=== PATIENT | female | born 1945 | race Caucasian/White ===

== ENCOUNTER 2024-06-02 13:35 | Emergency (ER) | payer MEDICARE, OTHER, SELFPAY ==
[2024-06-02] VITALS (22 sets, daily range): BP systolic 186–209; BP diastolic 79–102; PULSE 70–83; RESP 7–25; TEMP 36.7; O2SAT 89–97; BMI 18.5
--- NOTE | 2024-06-02 13:51 | ED_ITS ---
HPI - Chest Pain General Time Seen by Provider: 13:51 <Sandee Holley MD - Last Filed: 06/03/24 11:02> Date Seen: 06/02/24 <Sandee Holley MD - Last Filed: 06/03/24 11:02> Chief Complaint: Chest Pain <Sandee Holley MD - Last Filed: 06/03/24 11:02> Stated Complaint: chest pressure <Sandee Holley MD - Last Filed: 06/03/24 11:02> Time Seen by Provider: 06/02/24 13:38 <Sandee Holley MD - Last Filed: 06/03/24 11:02> Source: patient and RN notes reviewed <Sandee Holley MD - Last Filed: 06/03/24 11:02> Mode of arrival: ambulatory <Sandee Holley MD - Last Filed: 06/03/24 11:02> Limitations: no limitations <Sandee Holley MD - Last Filed: 06/03/24 11:02> History of Present Illness HPI narrative: This 78-year-old female is brought over from clinic where she was to be seeing Dr. Rivas, she is having elevated blood pressure, chest pain, has hx heart failure and copd. She is able to tell me that her chest pressure is been there maybe for about a week. She has underlying COPD, moved to [place] a few months ago, she states the moving people lost her nebulizer and medical kit. She has been coughing, sometimes whitish sputum, sometimes clear. No fevers. She does continue to smoke but states she has cut down. She feels her lungs maybe are worse, does feel short of breath. She baseline has had some headaches but notes she does not sleep well due to the pain in her legs below her knees due to her peripheral neuropathy. No acute visual changes, no acute neurologic changes at this time. Her chest symptoms are more of a pressure and have been there for the last week. She also has essential tremor, reported preserved ejection fracture heart failure, rheumatoid arthritis, hypertension. She does not check her blood pressure, her blood pressure monitoring kit got lost in her medical kit when she moved here. She notes that she has had a partial lobe removed in her lung. <Sandee Holley MD - Last Filed: 06/03/24 11:02> Related Data Home Medications: Home Medications ?Medication ?Instructions ?Recorded ?Confirmed albuterol sulfate 90 mcg/actuation 2 puff inhalation Q6H PRN 04/14/24 06/02/24 aerosol inhaler aspirin 81 mg chewable tablet 81 mg PO QDAY 04/14/24 06/02/24 azelastine 137 mcg-fluticasone 50 1 spray intranasal BID 04/14/24 06/02/24 mcg/spray nasal spray cholecalciferol (vitamin D3) 25 25 mcg PO QDAY 04/14/24 06/02/24 mcg (1,000 unit) capsule conjugated estrogens 1.25 mg tablet 1.25 mg PO TID 04/14/24 06/02/24 ipratropium 0.5 mg-albuterol 3 mg 3 ml inhalation Q6H PRN 04/14/24 06/02/24 (2.5 mg base)/3 mL nebulization soln leucovorin calcium 5 mg tablet 5 mg PO QWEEK 04/14/24 06/02/24 methotrexate sodium 2.5 mg tablet 2.5 mg PO .QFriday 04/14/24 06/02/24 multivitamin 1 tab PO QAM 04/14/24 06/02/24 pregabalin 75 mg capsule 75 mg PO QDAY 04/14/24 06/02/24 trazodone 100 mg tablet 100 mg PO QHS 04/14/24 06/02/24 golimumab 12.5 mg/mL intravenous 100 mg IV Q8W 04/15/24 06/02/24 solution (Simponi ARIA) Previous Rx's ?Medication ?Instructions ?Recorded diltiazem HCl 360 mg capsule,24 360 mg PO QDAY #90 caps 04/14/24 hr,extended release fluticasone fur. 100 mcg-umeclid 1 inh inhalation QDAY #60 ea 04/14/24 62.5 mcg-vilant 25 mcg inhalat.powder (Trelegy Ellipta) doxycycline hyclate 100 mg tablet 100 mg PO BID #14 tabs 06/02/24 gabapentin 100 mg capsule 100 mg PO TID #90 caps 06/02/24 prednisone 10 mg tablets in a dose See Rx Instructions PO .COMPLEX 06/02/24 pack #21 ea valsartan 80 1 tab PO QDAY #90 tabs 06/02/24 mg-hydrochlorothiazide 12.5 mg tablet (Diovan HCT) <Sandee Holley MD - Last Filed: 06/03/24 11:02> Allergies/Adverse Reactions: Allergies Allergy/AdvReac Type Severity Reaction Status Date / Time Sulfa (Sulfonamide Allergy Intermediate Hives Verified 06/02/24 15:49 Antibiotics) hydroxychloroquine Allergy Unknown Angioedema Verified 06/02/24 15:49 <Sandee Holley MD - Last Filed: 06/03/24 11:02> Review of Systems Status of ROS Reports: 6 or more systems reviewed and unremarkable except as noted in History and below <Sandee Holley MD - Last Filed: 06/03/24 11:02> PFSH PFSH Medical History: Medical History History of lung cancer (2013) ?Z85.118 - Personal history of other malignant neoplasm of bronchus and lung (ICD-10) <Sandee Holley MD - Last Filed: 06/03/24 11:02> Surgical History: Surgical History History of cataract surgery ?Z98.49 - Cataract extraction status, unspecified eye (ICD-10) History of lobectomy of lung (2013) ?Z90.2 - Acquired absence of lung [part of] (ICD-10) History of back surgery (07/2020) ?Z98.890 - Other specified postprocedural states (ICD-10) History of hysterectomy ?Z90.710 - Acquired absence of both cervix and uterus (ICD-10) History of cholecystectomy (06/02/14) ?Z90.49 - Acquired absence of other specified parts of digestive tract (ICD- 10) History of appendectomy ?Z90.49 - Acquired absence of other specified parts of digestive tract (ICD- 10) <Sandee Holley MD - Last Filed: 06/03/24 11:02> Family History: Family History Mother COPD (chronic obstructive pulmonary disease) High blood pressure Breast cancer Rheumatoid arthritis Father Bone cancer Maternal Grandmother Breast cancer <Sandee Holley MD - Last Filed: 06/03/24 11:02> Social History: Social History Smoking Status: Current every day smoker What tobacco products do you use: cigarettes Smoking packs per day: 0.5 Smoking cigarettes per day: 10.0 Do you use any of these nicotine containing products: None How often do you have a drink containing alcohol: monthly or less AUDIT-C Alcohol total score: 1 Non-prescribed substance use: denies use Caffeine: Yes Are you now , , , , never or living with a partner: Social isolation score (0-1 are the most socially isolated patients): 0 <Sandee Holley MD - Last Filed: 06/03/24 11:02> Exam Const Vital Signs, click to edit/add: Vital Signs - 24 hr 06/02/24 13:43 06/02/24 13:58 06/02/24 14:00 Temperature 98.1 F Pulse Rate 78 75 Pulse Rate [Right Pulse Oximeter] 76 Respiratory Rate 18 Blood Pressure 209/102 H Blood Pressure [Left Upper Arm] 186/79 H Pulse Oximetry 90 91 95 Oxygen Delivery Method Room Air 06/02/24 14:01 06/02/24 14:15 06/02/24 14:16 Temperature Pulse Rate 74 Pulse Rate [Right Pulse Oximeter] Respiratory Rate 13 Blood Pressure Blood Pressure [Left Upper Arm] Pulse Oximetry 93 94 Oxygen Delivery Method 06/02/24 14:30 06/02/24 14:33 06/02/24 14:34 Temperature Pulse Rate 70 75 70 Pulse Rate [Right Pulse Oximeter] Respiratory Rate 12 7 L 15 Blood Pressure 205/89 H Blood Pressure [Left Upper Arm] Pulse Oximetry 95 93 95 Oxygen Delivery Method 06/02/24 14:45 06/02/24 15:02 06/02/24 15:15 Temperature Pulse Rate 72 71 Pulse Rate [Right Pulse Oximeter] Respiratory Rate 14 11 L 23 Blood Pressure Blood Pressure [Left Upper Arm] Pulse Oximetry 89 97 Oxygen Delivery Method 06/02/24 15:48 06/02/24 16:00 06/02/24 16:02 Temperature Pulse Rate 76 75 Pulse Rate [Right Pulse Oximeter] Respiratory Rate 25 H 19 23 Blood Pressure 209/90 H Blood Pressure [Left Upper Arm] Pulse Oximetry 93 91 Oxygen Delivery Method 06/02/24 16:15 06/02/24 16:30 06/02/24 16:33 Temperature Pulse Rate 70 74 77 Pulse Rate [Right Pulse Oximeter] Respiratory Rate 25 H 21 19 Blood Pressure 191/97 H Blood Pressure [Left Upper Arm] Pulse Oximetry 93 91 92 Oxygen Delivery Method 06/02/24 16:34 06/02/24 16:45 06/02/24 17:00 Temperature Pulse Rate 83 79 77 Pulse Rate [Right Pulse Oximeter] Respiratory Rate 17 25 H 15 Blood Pressure Blood Pressure [Left Upper Arm] Pulse Oximetry 91 93 94 Oxygen Delivery Method 06/02/24 17:02 Temperature Pulse Rate 76 Pulse Rate [Right Pulse Oximeter] Respiratory Rate 21 Blood Pressure 187/81 H Blood Pressure [Left Upper Arm] Pulse Oximetry 91 Oxygen Delivery Method This 78-year-old female seen in exam room to. She is slender very well kept, very pleasant, no apparent distress, able to speak in complete sentences. Pupils equal round reactive, sclera clear, symmetrical facial function, able to speak in complete sentences, no hoarseness, no stridor. Neck is supple, no adenopathy, do not appreciate jugular venous distension. Lungs with distant breath sounds, prolonged expiratory phase, occasional rhonchi, overall lung sounds more distant. CV regular rate and rhythm systolic ejection murmur heard, normal S1-S2, no S3-S4. Abdomen is soft, nontender, nondistended, no organomegaly. She has some lower compression stockings on, symmetric mild edema appreciated underneath the stockings. Moving extremities, no focal neurologic deficits noted. <Sandee Holley MD - Last Filed: 06/03/24 11:02> Vital Signs - 24 hr 06/02/24 13:43 06/02/24 13:58 06/02/24 14:00 Temperature 98.1 F Pulse Rate 78 75 Pulse Rate [Right Pulse Oximeter] 76 Respiratory Rate 18 Blood Pressure 209/102 H Blood Pressure [Left Upper Arm] 186/79 H Pulse Oximetry 90 91 95 Oxygen Delivery Method Room Air 06/02/24 14:01 06/02/24 14:15 06/02/24 14:16 Temperature Pulse Rate 74 Pulse Rate [Right Pulse Oximeter] Respiratory Rate 13 Blood Pressure Blood Pressure [Left Upper Arm] Pulse Oximetry 93 94 Oxygen Delivery Method 06/02/24 14:30 06/02/24 14:33 06/02/24 14:34 Temperature Pulse Rate 70 75 70 Pulse Rate [Right Pulse Oximeter] Respiratory Rate 12 7 L 15 Blood Pressure 205/89 H Blood Pressure [Left Upper Arm] Pulse Oximetry 95 93 95 Oxygen Delivery Method 06/02/24 14:45 06/02/24 15:02 06/02/24 15:15 Temperature Pulse Rate 72 71 Pulse Rate [Right Pulse Oximeter] Respiratory Rate 14 11 L 23 Blood Pressure Blood Pressure [Left Upper Arm] Pulse Oximetry 89 97 Oxygen Delivery Method 06/02/24 15:48 06/02/24 16:00 06/02/24 16:02 Temperature Pulse Rate 76 75 Pulse Rate [Right Pulse Oximeter] Respiratory Rate 25 H 19 23 Blood Pressure 209/90 H Blood Pressure [Left Upper Arm] Pulse Oximetry 93 91 Oxygen Delivery Method 06/02/24 16:15 06/02/24 16:30 06/02/24 16:33 Temperature Pulse Rate 70 74 77 Pulse Rate [Right Pulse Oximeter] Respiratory Rate 25 H 21 19 Blood Pressure 191/97 H Blood Pressure [Left Upper Arm] Pulse Oximetry 93 91 92 Oxygen Delivery Method 06/02/24 16:34 06/02/24 16:45 06/02/24 17:00 Temperature Pulse Rate 83 79 77 Pulse Rate [Right Pulse Oximeter] Respiratory Rate 17 25 H 15 Blood Pressure Blood Pressure [Left Upper Arm] Pulse Oximetry 91 93 94 Oxygen Delivery Method 06/02/24 17:02 Temperature Pulse Rate 76 Pulse Rate [Right Pulse Oximeter] Respiratory Rate 21 Blood Pressure 187/81 H Blood Pressure [Left Upper Arm] Pulse Oximetry 91 Oxygen Delivery Method <Favian Villegas MD - Last Filed: 06/02/24 16:54> Documenting provider has reviewed patient's vital signs: yes <Sandee Holley MD - Last Filed: 06/03/24 11:02> Course Course ED Course: Will have patient on cardiac monitoring and pulse oximetry. Obtained EKG and troponin. She has had chest pressure that does not sound to be typical of cardiac origin for a week now. She certainly does have risk factors for ischemic disease 1 of which is ongoing tobacco use. She also has COPD, could have COPD exacerbation that is worsening. She probably needs to have a nebulizer. She was not aware what she uses if it is DuoNebs or plain albuterol. Her med rec looks to show DuoNebs which I would advocate for her. We will give her a DuoNeb here if needed. Will send her with a prescription for nebulizer if discharge. With her COPD, need to consider infectious etiology and are doing a triple viral swab. Will also do a D-dimer, consider vascular entities. With hypertension with think such things like dissection and aneurysms would be more likely rather than thromboembolic disease. She is not having the type of chest pain or significant chest symptoms that I would anticipate with a dissection. Will keep all this in mind, get full complement of labs, start with a portable chest x-ray. May need to consider advanced imaging if indicated. <Sandee Holley MD - Last Filed: 06/03/24 11:02> Reevaluation(s) Time of Reevaluation #1: 15:16 <Sandee Holley MD - Last Filed: 06/03/24 11:02> Reevaluation #1: Have reviewed with patient that we are going to proceed with CT imaging, make sure there are no vascular issues with dissection. She is feeling a little tight in her chest, does have some mild end expiratory wheezing. Will also do a DuoNeb for her. Have reviewed with her that Dr. Rivas has sent in a new antihypertensive medicine for her. Based on her chest x-ray, do think she is having complications of COPD, likely needs prednisone and an antibiotic. Will certainly see more on the CT imaging. <Sandee Holley MD - Last Filed: 06/03/24 11:02> Vital Signs Vital signs: Initial Vital Signs Temperature 98.1 F 06/02/24 13:43 Temperature Source Temporal Artery Scan 06/02/24 13:43 Pulse Rate 76 06/02/24 13:43 Pulse Rhythm Regular 06/02/24 13:43 Pulse Strength 3+ Normal 06/02/24 13:43 Respiratory Rate 18 06/02/24 13:43 Blood Pressure 186/79 H 06/02/24 13:43 Blood Pressure Mean 114 H 06/02/24 13:43 Blood Pressure Position Sitting 06/02/24 13:43 Pulse Oximetry 90 06/02/24 13:43 Oxygen Delivery Method Room Air 06/02/24 13:43 Vital Signs Temperature 98.1 F 06/02/24 13:43 Pulse Rate 76 06/02/24 13:43 Respiratory Rate 18 06/02/24 13:43 Blood Pressure 186/79 H 06/02/24 13:43 Pulse Oximetry 90 06/02/24 13:43 Oxygen Delivery Method Room Air 06/02/24 13:43 Temperature 98.1 F 06/02/24 13:43 Pulse Rate 76 06/02/24 17:02 Respiratory Rate 21 06/02/24 17:02 Blood Pressure 187/81 H 06/02/24 17:02 Pulse Oximetry 91 06/02/24 17:02 Oxygen Delivery Method Room Air 06/02/24 13:43 <Sandee Holley MD - Last Filed: 06/03/24 11:02> Initial Vital Signs Temperature 98.1 F 06/02/24 13:43 Temperature Source Temporal Artery Scan 06/02/24 13:43 Pulse Rate 76 06/02/24 13:43 Pulse Rhythm Regular 06/02/24 13:43 Pulse Strength 3+ Normal 06/02/24 13:43 Respiratory Rate 18 06/02/24 13:43 Blood Pressure 186/79 H 06/02/24 13:43 Blood Pressure Mean 114 H 06/02/24 13:43 Blood Pressure Position Sitting 06/02/24 13:43 Pulse Oximetry 90 06/02/24 13:43 Oxygen Delivery Method Room Air 06/02/24 13:43 Vital Signs Temperature 98.1 F 06/02/24 13:43 Pulse Rate 76 06/02/24 13:43 Respiratory Rate 18 06/02/24 13:43 Blood Pressure 186/79 H 06/02/24 13:43 Pulse Oximetry 90 06/02/24 13:43 Oxygen Delivery Method Room Air 06/02/24 13:43 Temperature 98.1 F 06/02/24 13:43 Pulse Rate 76 06/02/24 17:02 Respiratory Rate 21 06/02/24 17:02 Blood Pressure 187/81 H 06/02/24 17:02 Pulse Oximetry 91 06/02/24 17:02 Oxygen Delivery Method Room Air 06/02/24 13:43 <Favian Villegas MD - Last Filed: 06/02/24 16:54> Medications Administered Medications: Discontinued Medications Generic Name Dose Route Start Last Admin Trade Name Freq PRN Reason Stop Dose Admin Albuterol/Ipratropium 1 neb 06/02/24 15:18 06/02/24 16:02 Iprat-Albut 0.5-2.5 Mg/3 Ml [facility] 06/02/24 15:19 1 neb ONCE ONE Administration <Sandee Holley MD - Last Filed: 06/03/24 11:02> Discontinued Medications Generic Name Dose Route Start Last Admin Trade Name Freq PRN Reason Stop Dose Admin Albuterol/Ipratropium 1 neb 06/02/24 15:18 06/02/24 16:02 Iprat-Albut 0.5-2.5 Mg/3 Ml [facility] 06/02/24 15:19 1 neb ONCE ONE Administration <Favian Villegas MD - Last Filed: 06/02/24 16:54> MDM - Chest Pain MDM Narrative Medical decision making narrative: CT imaging this patient returns with no acute findings. She is okay to be discharged home. She has prescriptions for blood pressure medicines along with an antibiotic and a steroid course. I did also provide a prescription for gabapentin as she states that she does not have anything after moving here to treat her peripheral neuropathy. I advised her to follow-up with her primary physician for ongoing management. <Favian Villegas MD - Last Filed: 06/02/24 16:54> Lab Data Attestation: I reviewed the patient's lab results. <Sandee Holley MD - Last Filed: 06/03/24 11:02> Labs: Lab Results 06/02/24 Range/Units 14:16 WBC 11.38 H (4.50-11.00) K/uL RBC 5.09 (4.00-5.20) m/uL Hgb 15.8 (12.0-16.0) gm/dL Hct 47.3 (33.0-51.0) % MCV 93 (80-100) fL MCH 31 (26-34) pg MCHC 33 (32-36) gm/dL RDW Coeff of Yusuf 12.9 (11.5-15.5) % Plt Count 240 (140-440) K/uL Neut % (Auto) 79.5 H (42.0-72.0) % Lymph % (Auto) 14.3 L (20-44) % [place] % (Auto) 5.6 (0.0-11.0) % Eos % (Auto) 0.1 (0.0-7.0) % Baso % (Auto) 0.4 (0.0-3.0) % Neut # (Auto) 9.00 H (1.7-7.0) K/uL Lymph # (Auto) 1.60 (0.90-2.90) K/uL [place] # (Auto) 0.60 (0.00-0.90) K/UL Eos # (Auto) 0.00 (0.00-0.50) K/uL Baso # (Auto) 0.00 (0.00-0.30) K/uL Abs Immat Gran (auto) 0.00 (0.00-0.30) K/uL Imm/Tot Granulo (auto) 0.1 % D-Dimer Quant (PE/DVT) 0.84 H (0.00-0.50) ug/ml VBG pH 7.435 H (7.32-7.43) VBG pCO2 51 H (40-50) mmHG VBG pO2 32.5 (25-47) mmHG VBG HCO3 34 H (21-28) mmol/L Sodium 132 L (135-149) mmol/L Potassium 4.1 (3.6-5.1) mmol/L Chloride 92 L (96-114) mmol/L Carbon Dioxide 32 (20-32) mmol/L Anion Gap 8 (7-15) mEq/L BUN 11 (7-30) mg/dL Creatinine 0.6 (0.5-1.5) mg/dL Estimated Creat Clear 36.43 Estimated GFR 92 ml/min Glucose 93 (60-115) mg/dL Lactate 1.7 (0.5-1.9) mmol/L Calcium 9.2 (8.4-10.6) mg/dL Total Bilirubin 1.0 (0.1-1.5) mg/dL AST 35 (12-35) U/L ALT 27 (4-35) U/L Alkaline Phosphatase 46 (40-150) U/L Troponin I 0.03 (0.01-0.04) ng/mL C-Reactive Protein 0.7 (0.5-1.0) mg/dL NT-Pro-B Natriuret Pep 1880 pg/mL Total Protein 6.8 (6.0-8.3) g/dL Albumin 4.1 (3.3-5.0) g/dL SARS-CoV-2 (PCR) Negative SARS-CoV-2 (Negative) Influenza Type A (PCR) Negative PCR FLU A (Negative) Influenza Type B (PCR) Negative PCR FLU B (Negative) RSV (PCR) Negative PCR RSV (Negative) <Sandee Holley MD - Last Filed: 06/03/24 11:02> Lab Results 06/02/24 Range/Units 14:16 WBC 11.38 H (4.50-11.00) K/uL RBC 5.09 (4.00-5.20) m/uL Hgb 15.8 (12.0-16.0) gm/dL Hct 47.3 (33.0-51.0) % MCV 93 (80-100) fL MCH 31 (26-34) pg MCHC 33 (32-36) gm/dL RDW Coeff of Yusuf 12.9 (11.5-15.5) % Plt Count 240 (140-440) K/uL Neut % (Auto) 79.5 H (42.0-72.0) % Lymph % (Auto) 14.3 L (20-44) % [place] % (Auto) 5.6 (0.0-11.0) % Eos % (Auto) 0.1 (0.0-7.0) % Baso % (Auto) 0.4 (0.0-3.0) % Neut # (Auto) 9.00 H (1.7-7.0) K/uL Lymph # (Auto) 1.60 (0.90-2.90) K/uL [place] # (Auto) 0.60 (0.00-0.90) K/UL Eos # (Auto) 0.00 (0.00-0.50) K/uL Baso # (Auto) 0.00 (0.00-0.30) K/uL Abs Immat Gran (auto) 0.00 (0.00-0.30) K/uL Imm/Tot Granulo (auto) 0.1 % D-Dimer Quant (PE/DVT) 0.84 H (0.00-0.50) ug/ml VBG pH 7.435 H (7.32-7.43) VBG pCO2 51 H (40-50) mmHG VBG pO2 32.5 (25-47) mmHG VBG HCO3 34 H (21-28) mmol/L Sodium 132 L (135-149) mmol/L Potassium 4.1 (3.6-5.1) mmol/L Chloride 92 L (96-114) mmol/L Carbon Dioxide 32 (20-32) mmol/L Anion Gap 8 (7-15) mEq/L BUN 11 (7-30) mg/dL Creatinine 0.6 (0.5-1.5) mg/dL Estimated Creat Clear 36.43 Estimated GFR 92 ml/min Glucose 93 (60-115) mg/dL Lactate 1.7 (0.5-1.9) mmol/L Calcium 9.2 (8.4-10.6) mg/dL Total Bilirubin 1.0 (0.1-1.5) mg/dL AST 35 (12-35) U/L ALT 27 (4-35) U/L Alkaline Phosphatase 46 (40-150) U/L Troponin I 0.03 (0.01-0.04) ng/mL C-Reactive Protein 0.7 (0.5-1.0) mg/dL NT-Pro-B Natriuret Pep 1880 pg/mL Total Protein 6.8 (6.0-8.3) g/dL Albumin 4.1 (3.3-5.0) g/dL SARS-CoV-2 (PCR) Negative SARS-CoV-2 (Negative) Influenza Type A (PCR) Negative PCR FLU A (Negative) Influenza Type B (PCR) Negative PCR FLU B (Negative) RSV (PCR) Negative PCR RSV (Negative) <Favian G Nelly, MD - Last Filed: 06/02/24 16:54> Imaging Data Chest x-ray: Attestation: I have reviewed the pertinent imaging results. <Sandee Ornelas MD - Last Filed: 06/03/24 11:02> Radiologist's impression: Patient: RAINER PUCKETT Facility:?[facility] Patient ID:?[id number] Site Patient ID:?[id number]. Site :?[id number] Study:?XRay-Chest PORTABLE-06/02/2024 2:35:02 PM Ordering Physician:?Leydi Ignacio Final Report: INDICATION: COPD, chest discomfort for 1 week TECHNIQUE: Chest 1 views. COMPARISON: None. FINDINGS/IMPRESSION: Postsurgical changes/suture material is identified in the right upper and mid zone with changes of volume loss and upward tenting of the diaphragm. Haziness in right CP angle is concerning for small pleural effusion with adjacen t pulmonary infiltrate/atelectasis. Mild cardiomegaly without pulmonary edema. Left lung field is clear. Dictated by Ailyn Nguyễn MD @ 06/02/2024 2:53:47 PM (Electronic Signature) <Sandee Holley MD - Last Filed: 06/03/24 11:02> CT Chest/Abd/Pelvis: Radiologist's impression: 1. Postoperative changes of the chest status post likely lobectomy with residual emphysematous changes and basilar atelectasis parenchymal scarring within the peripheral right lung base. 2. Mildly aneurysmal infrarenal abdominal aorta with diffuse atherosclerotic plaque seen throughout the thoracic and abdominal aorta. No evidence of filling defect to suggest dissection. No evidence of high-grade stenosis. 3. Nonspecific thickening of the colon with minimal distal colonic diverticulosis. Findings may represent mild colitis changes. No definite evidence of focal diverticulitis. <Favian Villegas MD - Last Filed: 06/02/24 16:54> ECG Data Attestation: I personally reviewed and interpreted this ECG as follows: (Normal sinus rhythm, 73 beats per minute. Left anterior fascicular block, LVH by voltage criteria. Poor R-wave progression anterior precordial leads. There is artifact due to patient's tremor but no definitive ischemic change noted.) <Sandee Holley MD - Last Filed: 06/03/24 11:02> ECG interpretation date: 06/02/24 <Sandee Holley MD - Last Filed: 06/03/24 11:02> ECG interpretation time: 14:56 <Sandee Holley MD - Last Filed: 06/03/24 11:02> Discharge Plan Discharge Clinical Impression: Acute exacerbation of chronic obstructive pulmonary disease (COPD) Hypertension Qualifiers: Hypertension type: unspecified Qualified Code(s): I10 - Essential (primary) hypertension <Sandee Holley MD - Last Filed: 06/03/24 11:02> Patient Disposition: Home, Self-Care <Sandee Holley MD - Last Filed: 06/03/24 11:02> Condition: Stable <Sandee Holley MD - Last Filed: 06/03/24 11:02> Instructions: COPD (Chronic Obstructive Pulmonary Disease) (ED), Hypertension (ED) <Sandee Holley MD - Last Filed: 06/03/24 11:02> Additional Instructions: Start prednisone and doxycycline for COPD and underlying lung infection. Dr. Rivas has sent in a blood pressure medicine for you to start as well, take this once daily. Please get a nebulizer, prescription provided. May need to take this to a pharmacy that does durable medical goods like [facility] if your usual pharmacy does not carry these. Do recommend doing the DuoNebs that you have listed in your medication reconciliation 3 to 4 times a day until you are feeling better. You may find that you benefit from doing these every day. If you are not improving over the next few days, feel you are worsening at any point or have further concerns, please seek re-evaluation. Otherwise, schedule follow-up in clinic with Dr. Rivas within the next week. <Sandee Holley MD - Last Filed: 06/03/24 11:02> Prescriptions: New doxycycline hyclate 100 mg tablet 100 mg PO BID Qty: 14 0RF gabapentin 100 mg capsule 100 mg PO TID Qty: 90 2RF prednisone 10 mg tablets,dose pack See Rx Instructions PO .COMPLEX Qty: 21 0RF Rx Instructions: orally per package directions No Action albuterol sulfate 90 mcg/actuation HFA aerosol inhaler 2 puff inhalation Q6H PRN aspirin 81 mg tablet,chewable 81 mg PO QDAY azelastine-fluticasone 137-50 mcg/spray spray,non-aerosol 1 spray intranasal BID Rx Instructions: administer into each nostril cholecalciferol (vitamin D3) 25 mcg (1,000 unit) capsule 25 mcg PO QDAY conjugated estrogens 1.25 mg tablet 1.25 mg PO TID ipratropium-albuterol 0.5 mg-3 mg(2.5 mg base)/3 mL solution for nebulization 3 ml inhalation Q6H PRN leucovorin calcium 5 mg tablet 5 mg PO QWEEK Rx Instructions: administer 24 hours after the start of the methotrexate infusion methotrexate sodium 2.5 mg tablet 2.5 mg PO .QFriday Rx Instructions: Takes 8 tabs= 20mg multivitamin Tablet 1 tab PO QAM pregabalin 75 mg capsule 75 mg PO QDAY Rx Instructions: 1 PO QAM 1 PO @ noon 1 PO QHS trazodone 100 mg tablet 100 mg PO QHS Rx Instructions: Takes 2 tabs (200mg) Trelegy Ellipta 100-62.5-25 mcg blister with device 1 inh inhalation QDAY Qty: 60 3RF diltiazem HCl 360 mg capsule,extended release 24hr 360 mg PO QDAY Qty: 90 3RF Simponi ARIA 12.5 mg/mL solution 100 mg IV Q8W Rx Instructions: administer over 30 mins valsartan-hydrochlorothiazide [Diovan HCT] 80-12.5 mg tablet 1 tab PO QDAY Qty: 90 3RF <Sandee Holley MD - Last Filed: 06/03/24 11:02> Follow Up/Referrals: Neymar Rivas MD [Primary Care Provider] - <Sandee Holley MD - Last Filed: 06/03/24 11:02> Stand Alone Forms: [facility] Info Instructions <Sandee Holley MD - Last Filed: 06/03/24 11:02>
--- NOTE | 2024-06-02 14:02 | CRLHL7_ITS ---
For Patients: As a result of the Century Cures Act, medical imaging exams and procedure reports are released immediately into your electronic medical record. You may view this report before your referring provider. If you have questions, please contact your health care provider. INDICATION: COPD, chest discomfort for 1 week TECHNIQUE: Chest 1 views. COMPARISON: None. FINDINGS/IMPRESSION: Postsurgical changes/suture material is identified in the right upper and mid zone with changes of volume loss and upward tenting of the diaphragm. Haziness in right CP angle is concerning for small pleural effusion with adjacent pulmonary infiltrate/atelectasis. Mild cardiomegaly without pulmonary edema. Left lung field is clear. Dictated by Ailyn Nguyễn MD @ 06/02/2024 2:53:47 PM (Electronically Signed)
[2024-06-02 14:26] LABS: HCO3 VBG 34 mmol/L (21-28); Lactate* 1.7 mmol/L (0.5-1.9); PCO2 VBG 51 mmHG (40-50); PO2 VBG 32.5 mmHG (25-47); pH VBG 7.435 (7.32-7.43)
[2024-06-02 14:33] LABS: Basophils Percent Auto 0.4 % (0.0-3.0); Eosinophils Percent Auto 0.1 % (0.0-7.0); Hematocrit 47.3 % (33.0-51.0); Hemoglobin* 15.8 gm/dL (12.0-16.0); Immature Granulocytes Pct Auto 0.1 %; Lymphocytes Percent Auto 14.3 % (20-44); Mean Corpuscular HGB Conc 33 gm/dL (32-36); Mean Corpuscular Hemoglobin 31 pg (26-34); Mean Corpuscular Volume 93 fL (80-100); Monocytes Percent Auto 5.6 % (0.0-11.0); Neutrophils Percent Auto 79.5 % (42.0-72.0); Platelet Count* 240 K/uL (140-440); RDW Coefficient of Variation % 12.9 % (11.5-15.5); Red Blood Count 5.09 m/uL (4.00-5.20); White Blood Count* 11.38 K/uL (4.50-11.00)
[2024-06-02 14:41] LABS: Slide Review Reflex No
[2024-06-02 14:42] LABS: Albumin* 4.1 g/dL (3.3-5.0); Chloride* 92 mmol/L (96-114); Potassium* 4.1 mmol/L (3.6-5.1); Sodium* 132 mmol/L (135-149)
[2024-06-02 14:45] LABS: Alanine Aminotransferase* 27 U/L (4-35); Alkaline Phosphatase* 46 U/L (40-150); Anion Gap 8 mEq/L (7-15); Aspartate Amino Transferase* 35 U/L (12-35); Blood Urea Nitrogen* 11 mg/dL (7-30); Carbon Dioxide* 32 mmol/L (20-32); Creatinine* 0.6 mg/dL (0.5-1.5); Est. Creatinine Clearance* 36.43; Estimated Glomerular Filt Rate 92 ml/min
[2024-06-02 14:46] LABS: Calcium* 9.2 mg/dL (8.4-10.6); Glucose* 93 mg/dL (60-115); Total Protein* 6.8 g/dL (6.0-8.3)
[2024-06-02 14:48] LABS: C Reactive Protein* 0.7 mg/dL (0.5-1.0); D Dimer Quantitative* 0.84 ug/ml (0.00-0.50)
[2024-06-02 14:57] LABS: Troponin I* 0.03 ng/mL (0.01-0.04)
[2024-06-02 15:04] LABS: NT Pro B Type NatriureticPept* 1880 pg/mL; PCR FLU A Negative PCR FLU A (Negative); PCR FLU B Negative PCR FLU B (Negative); PCR RSV Negative PCR RSV (Negative); SARS PCR* Negative SARS-CoV-2 (Negative)
--- NOTE | 2024-06-02 15:15 | CRLHL7_ITS ---
For Patients: As a result of the Century Cures Act, medical imaging exams and procedure reports are released immediately into your electronic medical record. You may view this report before your referring provider. If you have questions, please contact your health care provider. Indication: Hypertension, chest pain mild increased D-dimer history of COPD Technique: Volumetric multidetector CT images of the chest, abdomen and pelvis were obtained before and after the administration of intravenous contrast using a dissection protocol. Maximum intensity projections were performed. Comparison: None available Findings: The thoracic inlet is grossly unremarkable. The thyroid gland is unremarkable. The thoracic aorta demonstrates minimal atherosclerotic calcification and is nonaneurysmal. Minimal atherosclerotic plaque is seen within the origins of the great vessels. No evidence of filling defect to suggest dissection. There is [id number] central bronchial thickening with likely postoperative changes of the right chest status post lobectomy with minimal chronic atelectasis. There is peripheral basilar interstitial opacity within the right lung base somewhat limited due to motion artifact. Moderate emphysematous changes of the upper lobes are appreciated. No obvious suspicious pulmonary mass lesion. The thoracic osseous structures are grossly intact. The thoracic vertebral body heights are grossly maintained with minimal degenerative disc disease. The liver is mildly prominent without evidence of obvious focal abnormality. There is prior cholecystectomy with reservoir dilatation of the intrahepatic common bile ducts. The spleen is normal in size and attenuation 4 phase contrast. The stomach is grossly decompressed. There is mild thickening of the gastric antrum. The adrenal glands are within normal limits. The kidneys demonstrate cystic changes with otherwise preserved corticomedullary differentiation. The pancreas is grossly normal in enhancement. Moderate stool is seen throughout the colon which demonstrates minimal nonspecific colonic wall thickening. The descending colon is somewhat decompressed with mild pericolonic inflammation. There is moderate colonic diverticulosis. The central small bowel is grossly decompressed. No evidence of pathologic adenopathy. There is minimal fluid seen within the central pelvis. No intra-abdominal free air. There is a mildly aneurysmal infrarenal abdominal aorta with moderate scattered atherosclerotic plaque. Normal runoff into the distal lower extremities. Minimal atherosclerotic plaque of the abdominal vessels without high-grade stenosis. Postoperative changes of the lumbar spine are appreciated status post pedicle screw and stabilization annemarie at the L3-L4 level. Otherwise the lumbar vertebral body heights are grossly maintained. Impression: 1. Postoperative changes of the chest status post likely lobectomy with residual emphysematous changes and basilar atelectasis parenchymal scarring within the peripheral right lung base. 2. Mildly aneurysmal infrarenal abdominal aorta with diffuse atherosclerotic plaque seen throughout the thoracic and abdominal aorta. No evidence of filling defect to suggest dissection. No evidence of high-grade stenosis. 3. Nonspecific thickening of the colon with minimal distal colonic diverticulosis. Findings may represent mild colitis changes. No definite evidence of focal diverticulitis. Please note that all CT scans at this facility use dose modulation, iterative reconstruction, and/or weight-based dosing when appropriate to reduce radiation dose to as low as reasonably achievable. Dictated by Andrés Ramirez MD @ 06/02/2024 4:35:13 PM (Electronically Signed)
[2024-06-02] MEDS: IPRAT-ALBUT 0.5-2.5 MG/3 ML NEB 1 NEB IH (16:02)
== END 2024-06-02 17:15 | disposition home or self-care (01) ==
LOC: ED 16:34
PROVIDERS: Emergency Provider Family Medicine; PCP Internal Medicine
DX: J44.1 Chronic obstructive pulmonary disease with (acute) exacerbation (principal); I10 Essential (primary) hypertension
CPT/HCPCS: 36415; 71045; 71275; 74174; 80053; 82803; 83605; 83880; 84484; 85025; 85379; 86140; 87631; 94640; 94761; 99284; 99285; Q9967

== ENCOUNTER 2024-06-30 15:55 | Emergency (ER) | payer MEDICARE, OTHER, SELFPAY ==
[2024-06-30 15:58] VITALS: BP 142/63; PULSE 66; RESP 20; TEMP 36.4; O2SAT 91; BMI 18.5
--- NOTE | 2024-06-30 16:13 | CRLHL7_ITS ---
For Patients: As a result of the Century Cures Act, medical imaging exams and procedure reports are released immediately into your electronic medical record. You may view this report before your referring provider. If you have questions, please contact your health care provider. INDICATION: Fall, hurt right arm TECHNIQUE: Humerus radiograph 2 views right COMPARISON: None FINDINGS: Bone: There is a comminuted fracture of the humeral head involving the greater tuberosity and neck of the humerus. Joint: The glenohumeral joint is unremarkable. The acromioclavicular joint is unremarkable. The elbow joint is unremarkable, but the elbow joint is not profiled. If there is pain or tenderness in this region, dedicated views of the elbow are recommended. Soft tissue: Unremarkable. The visualized hemithorax is unremarkable in appearance. No radiopaque foreign bodies are seen. IMPRESSION: 1. There is a comminuted fracture of the humeral head involving the greater tuberosity and neck of the humerus. Dictated by Chuck Chavez MD @ 06/30/2024 4:45:53 PM Dictated by: Chuck Chavez MD @ 06/30/2024 16:45:57 (Electronically Signed)
--- NOTE | 2024-06-30 16:18 | ED.GENADULT ---
HPI - General Adult General Date Seen: 06/30/24 Chief complaint: Extremity Pain/Injury, Upper Stated complaint: Fell, R shoulder pain Time Seen by Provider: 06/30/24 16:15 History of Present Illness HPI narrative: 78 yo FPresenting to the ER today for right shoulder and upper extremity pain and injury. She was in her garden today. There was a bee that she was trying to move away from when she lost her balance and fell. She landed on grass and sounds like most of her weight landed on her right arm. She is having severe 10/10 pain from her right shoulder radiating all the way down to the right forearm. She has a history of COPD, tobacco use, hypertension, rheumatoid arthritis, heart failure with preserved ejection fraction, peripheral neuropathy, spinal stenosis with chronic low back pain and also spinal cord problems leading to severe neuropathy in her legs which makes her unable to walk. She relies on assistance for transfers and uses a wheelchair. She also has a history of hyperlipidemia, GERD. She is not currently on any anticoagulants. She does take baby aspirin. She has a chronic suprapubic catheter because of neurogenic bladder. It gets changed about once a month and was changed most recently about 2 weeks ago. She has frequent UTIs (family estimates about 1 infection per month) and she was just on a course of antibiotics a week or 2 or go for UTI. Related Data Home Medications ?Medication ?Instructions ?Recorded ?Confirmed albuterol sulfate 90 mcg/actuation 2 puff inhalation Q6H PRN 04/14/24 06/30/24 aerosol inhaler aspirin 81 mg chewable tablet 81 mg PO QDAY 04/14/24 06/30/24 azelastine 137 mcg-fluticasone 50 1 spray intranasal BID 04/14/24 06/16/24 mcg/spray nasal spray cholecalciferol (vitamin D3) 25 25 mcg PO QDAY 04/14/24 06/16/24 mcg (1,000 unit) capsule conjugated estrogens 1.25 mg tablet 1.25 mg PO TID 04/14/24 06/16/24 ipratropium 0.5 mg-albuterol 3 mg 3 ml inhalation Q6H PRN 04/14/24 06/30/24 (2.5 mg base)/3 mL nebulization soln multivitamin 1 tab PO QAM 04/14/24 06/16/24 pregabalin 75 mg capsule 75 mg PO QDAY 04/14/24 06/30/24 golimumab 12.5 mg/mL intravenous 100 mg IV Q8W 04/15/24 06/16/24 solution (Simponi ARIA) Previous Rx's ?Medication ?Instructions ?Recorded diltiazem HCl 360 mg capsule,24 360 mg PO QDAY #90 caps 04/14/24 hr,extended release fluticasone fur. 100 mcg-umeclid 1 inh inhalation QDAY #60 ea 04/14/24 62.5 mcg-vilant 25 mcg inhalat.powder (Trelegy Ellipta) gabapentin 100 mg capsule 100 mg PO TID #90 caps 06/02/24 prednisone 10 mg tablets in a dose See Rx Instructions PO .COMPLEX 06/02/24 pack #21 ea valsartan 80 1 tab PO QDAY #90 tabs 06/02/24 mg-hydrochlorothiazide 12.5 mg tablet (Diovan HCT) nicotine 14 mg/24 hr daily 1 patch transdermal Q24H #28 ea 06/16/24 transdermal patch trazodone 100 mg tablet 100 mg PO QHS #30 tabs 06/16/24 ondansetron 4 mg disintegrating 4 mg PO Q8H PRN nausea and 06/30/24 tablet vomiting #10 tabs oxycodone 5 mg capsule 5 - 10 mg (1 - 2 x 5 mg) PO Q6H 06/30/24 PRN pain #12 caps Allergies Allergy/AdvReac Type Severity Reaction Status Date / Time Sulfa (Sulfonamide Allergy Intermediate Hives Verified 06/16/24 14:42 Antibiotics) hydroxychloroquine Allergy Unknown Angioedema Verified 06/16/24 14:42 [facility] Medical History (Updated 06/30/24 @ 18:09 by Elio Griffin MD) History of lung cancer (2013) ?Z85.118 - Personal history of other malignant neoplasm of bronchus and lung (ICD-10) Surgical History History of cataract surgery ?Z98.49 - Cataract extraction status, unspecified eye (ICD-10) History of lobectomy of lung (2013) ?Z90.2 - Acquired absence of lung [part of] (ICD-10) History of back surgery (07/2020) ?Z98.890 - Other specified postprocedural states (ICD-10) History of hysterectomy ?Z90.710 - Acquired absence of both cervix and uterus (ICD-10) History of cholecystectomy (06/02/14) ?Z90.49 - Acquired absence of other specified parts of digestive tract (ICD-10) History of appendectomy ?Z90.49 - Acquired absence of other specified parts of digestive tract (ICD-10) Family History Mother COPD (chronic obstructive pulmonary disease) High blood pressure Breast cancer Rheumatoid arthritis Father Bone cancer Maternal Grandmother Breast cancer Social History (Updated 06/17/24 @ 09:02 by Abigail Pickett ~ [facility]) What is your current living situation?: I presently have a place to live Problems where you live: no known problems In the past 12 months, utilities in danger of being shut off: no In past 12 months, lack of transportation kept you from medical appts, meetings, work, or getting things needed for daily living: no In the past 12 mos, have been you worried that your food would run out before you had money to buy more?: never true In the past 12 mos, the food you bought just didn't last and you didn't have money to buy more?: never true Smoking Status: Current every day smoker What tobacco products do you use: cigarettes Smoking packs per day: 0.5 Smoking cigarettes per day: 10.0 Do you use any of these nicotine containing products: None How often do you have a drink containing alcohol: monthly or less AUDIT-C Alcohol total score: 1 Non-prescribed substance use: denies use Caffeine: Yes Are you now , , , , never or living with a partner: Social isolation score (0-1 are the most socially isolated patients): 0 How often does anyone, including family, friends and others, physically hurt you: never How often does anyone, including family, friends and others, insult or talk down to you: never How often does anyone, including family, friends and others, threaten you with harm: never How often does anyone, including family, friends and others, scream or curse at you: never Exam Narrative: Exam Narrative: Primary Survey: A- patent. Speaking clearly. Phonation normal. No stridor. B- breathing easily. Lung sounds clear and equal. Oxygen saturation normal on room air C- no active bleeding. Blood pressure stable. Symmetric pulses and cap refill in 4 extremities. D- alert and oriented x3. GCS 15. No focal deficits. Constitutional: Appears well-developed and well-nourished. Alert. Conversant. Non toxic. HENT: Head: Atraumatic. No depressed skull fracture, Raccoon Eyes, Bolanos's sign, or hemotympanum. Face normal. TMs normal Nose: Nose normal. Mouth/Throat: Oral mucosa is clear and moist. no trismus. Eyes: Conjunctivae normal. EOM normal. Pupils equal, round, and reactive to light. No scleral icterus. Neck: No posterior midline tenderness or step-off. Normal range of motion. Neck supple. No tracheal deviation present. Cardiovascular: Normal rate, regular rhythm. No gallop. No friction rub. No murmur heard. Symmetric radial artery pulses Pulmonary/Chest: Effort normal. No stridor. No respiratory distress. No wheezes. No rales. No rhonchi . No ribcage tenderness. Abdominal: Soft.No distension. No mass. No tenderness. No rebound. No guarding. Musculoskeletal: RUE: Clavicle nontender. Fairly severe right shoulder tenderness and apparent swelling there. Limited range of motion right shoulder by pain. Humeral shaft, distal humerus, elbow, forearm, wrist, hand, fingers are not injured. Intact axillary, radial, median, ulnar artery sensory function. Intact median, radial, ulnar motor function. Axillary motor function limited by shoulder pain. Strong brachial and radial pulses. Normal distal cap refill. LUE: Normal range of motion. No tenderness. No deformity RLE: Normal range of motion. No edema. No tenderness. No deformity LLE: Normal range of motion. No edema. No tenderness. No deformity Neurological: Alert and oriented to person, place, and time. Normal strength. CN II-VII intact. No sensory deficit. GCS eye subscore is 4. GCS verbal subscore is 5. GCS motor subscore is 6. Normal coordination Skin: Skin is warm and dry. No rash noted. No pallor. Normal capillary refill. Psychiatric: Normal mood. Normal affect. Const: Vital Signs, click to edit/add: Vital Signs - 24 hr 06/30/24 15:58 Temperature 97.5 F L Pulse Rate [Pulse Oximeter] 66 Respiratory Rate 20 Blood Pressure [Ri ght Upper Arm] 142/63 H Pulse Oximetry 91 Oxygen Delivery Me thod Room Air Course Course ED Course: Procedure: Suprapubic Eden catheter exchange Indication possible UTI, need to obtain clean urinalysis The skin around the suprapubic catheter looks good. No erythema or signs of infection. The patient's existing Eden catheter was an 18 Lebanese. It was removed after deflating the balloon, by nursing staff. The catheter came out easily. After removing the catheter the nurse noted a little bit of purulent urine drainage from the stoma, We applied sterile lidocaine jelly (Uro jet, 6 mL) Sterile prep with Betadine using 3 swabs and strict sterile technique. Using a new sterile 18 Lebanese catheter we advanced a new catheter through the suprapubic trach. We did not encounter any resistance and the catheter advanced easily into the bladder. We did have return of cloudy light yellow/white discolored urine. Balloon was inflated with 10 mL of sterile water. No complications noted. Vital Signs Vital signs: Initial Vital Signs Temperature 97.5 F L 06/30/24 15:58 Temperature Source Temporal Artery Scan 06/30/24 15:58 Pulse Rate 66 06/30/24 15:58 Respiratory Rate 20 06/30/24 15:58 Blood Pressure 142/63 H 06/30/24 15:58 Blood Pressure Mean 89 06/30/24 15:58 Blood Pressure Position Sitting 06/30/24 15:58 Pulse Oximetry 91 06/30/24 15:58 Oxygen Delivery Method Room Air 06/30/24 15:58 Vital Signs Temperature 97.5 F L 06/30/24 15:58 Pulse Rate 66 06/30/24 15:58 Respiratory Rate 20 06/30/24 15:58 Blood Pressure 142/63 H 06/30/24 15:58 Pulse Oximetry 91 06/30/24 15:58 Oxygen Delivery Method Room Air 06/30/24 15:58 Temperature 97.5 F L 06/30/24 15:58 Pulse Rate 66 06/30/24 15:58 Respiratory Rate 20 06/30/24 15:58 Blood Pressure 142/63 H 06/30/24 15:58 Pulse Oximetry 91 06/30/24 15:58 Oxygen Delivery Method Room Air 06/30/24 15:58 Medications Administered Medications: Discontinued Medications Generic Name Dose Route Start Last Admin Trade Name Zhao PRN Reason Stop Dose Admin Hydrocodone Bitart/Acetaminophen 1 tab 06/30/24 17:08 06/30/24 17:13 Hydrocodone-Acetamin 5-325 Mg 1 Tab PO 06/30/24 17:09 1 tab ONCE ONE Administration Hydromorphone HCl 0.5 mg 06/30/24 18:06 06/30/24 18:37 Hydromorphone 0.5 Mg/0.5 Ml Inj IM 0.5 mg Q1H PRN Administration Pain Ondansetron HCl 4 mg 06/30/24 17:08 06/30/24 18:36 Ondansetron 2 Mg/Ml Inj IVP 06/30/24 17:09 Not Given ONCE ONE Ondansetron HCl 4 mg 06/30/24 18:11 06/30/24 17:10 Ondansetron Odt 4 Mg Tab PO 06/30/24 18:12 4 mg ONCE ONE Administration Medical Decision Making [facility] Narrative Medical decision making narrative: Very pleasant 78-year-old female presenting to the ER today by private car from her home after she had a mechanical trip and fall while she was working in her garden. She was trying to move away from a bee when she fell. She did not faint or have a seizure. She landed on her right shoulder and felt it move and since then has been having severe right shoulder pain radiating down her right arm. She did not hit her head and does not have a headache. No loss of consciousness. No associated neck pain. No other injury aside from her right upper extremity. She did not injure her back, hips, pelvis, abdomen, ribs. Head to toe trauma exam was performed she has no signs of any serious injuries safe for her right upper extremity/right shoulder. X-rays of the patient's right shoulder and elbow were obtained by nursing when she arrived and they do reveal evidence for a comminuted right humeral head fracture. No evidence for any elbow fracture on current imaging. On my clinical exam this would correlate with her site of pain and tenderness. Fortunately she is neurovascularly intact in the right hand. Pain control is difficult for this patient. We initially started with oral [place] (and Zofran to prevent side effects) but this was ineffective. Patient was very eager to discharge but needed more pain medication. She wanted to go home right away as well. I got her to agree to stay for an IM shot of Dilaudid. We discussed options for pain control at home. Will try her on oxycodone for pain control rather than hydrocodone. She says she has been on in the past (either oxycodone or OxyContin). We reviewed opiate precautions and side effects. Will also send prescription for Zofran 0 DT. Discussed the patient's fracture with on-call Orthopedics, EMILIA Martinez. She agrees with the plan to place the patient into a sling and have her follow-up in clinic for follow-up. Hopefully this will heal non operatively. Discussed return precautions. Questions answered to the best my ability. Patient her daughter are eager for discharge. Discharge Plan Discharge Clinical Impression: Fracture of head of humerus Patient Disposition: Home, Self-Care Condition: Stable Instructions: Proximal Humerus Fracture (ED) Additional Instructions: As we discussed, unfortunately our x-ray shows that you broke your right shoulder at the top end of your right humerus bone. This is a painful injury. Hopefully, it will heal with rest and by wearing a sling. To take care of your shoulder injury, wear the sling when you are up and around. Keep the sling in place to gently support your right arm but do not over tighten the sling so that it pulls a port on your shoulder. It is okay to take the sling off at night will your sleeping or when you are in the shower. To help manage the pain you can use ice (an ice pack for 20 minutes every 3-4 hours over the next 2-3 days), Tylenol, or ibuprofen. Use the prescription pain killer (oxycodone) if needed for severe pain. Be careful because oxycodone can cause dizziness, drowsiness, constipation, unsteady walking, and can be addictive. Use the nausea medication (Zofran) to help treat upset stomach give oxycodone causes that side effect. Return to the ER right away if you have any concerns especially severe or uncontrolled pain, or any other new concerning symptoms. Please call the [facility] tomorrow to arrange an ER follow-up visit within the next 2-3 days. Call [phone] Prescriptions: New ondansetron 4 mg tablet,disintegrating 4 mg PO Q8H PRN (Reason: nausea and vomiting) Qty: 10 0RF oxycodone 5 mg capsule 5 - 10 mg PO Q6H PRN (Reason: pain) Qty: 12 0RF No Action albuterol sulfate 90 mcg/actuation HFA aerosol inhaler 2 puff inhalation Q6H PRN aspirin 81 mg tablet,chewable 81 mg PO QDAY azelastine-fluticasone 137-50 mcg/spray spray,non-aerosol 1 spray intranasal BID Rx Instructions: administer into each nostril cholecalciferol (vitamin D3) 25 mcg (1,000 unit) capsule 25 mcg PO QDAY conjugated estrogens 1.25 mg tablet 1.25 mg PO TID ipratropium-albuterol 0.5 mg-3 mg(2.5 mg base)/3 mL solution for nebulization 3 ml inhalation Q6H PRN multivitamin Tablet 1 tab PO QAM pregabalin 75 mg capsule 75 mg PO QDAY Rx Instructions: 1 PO QAM 1 PO @ noon 1 PO QHS Trelegy Ellipta 100-62.5-25 mcg blister with device 1 inh inhalation QDAY Qty: 60 3RF diltiazem HCl 360 mg capsule,extended release 24hr 360 mg PO QDAY Qty: 90 3RF Simponi ARIA 12.5 mg/mL solution 100 mg IV Q8W Rx Instructions: administer over 30 mins valsartan-hydrochlorothiazide [Diovan HCT] 80-12.5 mg tablet 1 tab PO QDAY Qty: 90 3RF trazodone 100 mg tablet 100 mg PO QHS Qty: 30 3RF Rx Instructions: Takes 2 tabs (200mg) nicotine 14 mg/24 hr patch 24 hour 1 patch transdermal Q24H Qty: 28 2RF gabapentin 100 mg capsule 100 mg PO TID Qty: 90 2RF prednisone 10 mg tablets,dose pack See Rx Instructions PO .COMPLEX Qty: 21 0RF Rx Instructions: orally per package directions Follow Up/Referrals: Neymar Rivas MD [Primary Care Provider] - Stand Alone Forms: [facility] Info Instructions
--- NOTE | 2024-06-30 16:23 | CRLHL7_ITS ---
For Patients: As a result of the Century Cures Act, medical imaging exams and procedure reports are released immediately into your electronic medical record. You may view this report before your referring provider. If you have questions, please contact your health care provider. INDICATION: Fall, elbow pain TECHNIQUE: Elbow radiograph 2 views right COMPARISON: None FINDINGS: Bone: No acute fractures or aggressive bone lesions are identified. Joint: The elbow joint is unremarkable. No significant displacement of the anterior or posterior fat pads noted to suggest an effusion. Soft tissue: Overlying fabric artifacts severely degrade the evaluation of the soft tissues and osseous structures and by the nonstandard arm positioning by the patient`s side. No radiopaque foreign bodies are seen. IMPRESSIONS: 1. No acute osseous injuries or abnormalities are noted. 2. Overlying fabric artifacts severely degrade the evaluation of the soft tissues and osseous structures and by the nonstandard arm positioning by the patient`s side. Study should be repeated when the patient is more stable. Dictated by Chuck Chavez MD @ 06/30/2024 4:46:55 PM Dictated by: Chuck Chavez MD @ 06/30/2024 16:47:00 (Electronically Signed)
[2024-06-30] MEDS: ONDANSETRON ODT 4 MG TAB PO (17:10)
[2024-06-30] MEDS: HYDROCODONE-ACETAMIN 5-325 MG 1 TAB PO (17:13)
[2024-06-30] MEDS: HYDROmorphone 0.5 mg/0.5 ml inj IM (18:37)
== END 2024-06-30 18:52 | disposition home or self-care (01) ==
LOC: ED 18:25
PROVIDERS: Emergency Provider Emergency Medicine; PCP Internal Medicine
DX: S42.201A Unspecified fracture of upper end of right humerus, initial encounter for closed fracture (principal); W01.0XXA Fall on same level from slipping, tripping and stumbling without subsequent striking against object, initial encounter; Y93.H2 Activity, gardening and landscaping; Y92.007 Garden or yard of unspecified non-institutional (private) residence as the place of occurrence of the external cause; Z87.440 Personal history of urinary (tract) infections; Z96.0 Presence of urogenital implants
CPT/HCPCS: 51702; 73060; 73070; 84443; 96374; 99282; 99284; A9270; J1171

== ENCOUNTER 2024-07-23 09:59 | Outpatient (CLI) | payer MEDICARE, OTHER, SELFPAY | END 2024-07-23 10:00 | disposition home or self-care (01) | LOC: CT 10:01 | PROVIDERS: PCP Internal Medicine; Visit Provider Physician Assistant Surgical | DX: M25.511 Pain in right shoulder (principal) | CPT/HCPCS: 73200 ==

== ENCOUNTER 2024-08-03 12:50 | Outpatient (CLI) | payer MEDICARE, OTHER, SELFPAY | END 2024-08-03 12:51 | disposition home or self-care (01) | LOC: WOUND 12:51 | PROVIDERS: PCP Internal Medicine; Referring Provider Orthopaedic Surgery Sports Medicine; Visit Provider Nurse Practitioner Family | DX: L98.8 Other specified disorders of the skin and subcutaneous tissue (principal) | CPT/HCPCS: G0463 ==

== ENCOUNTER 2024-08-30 07:29 | Inpatient (IN) | payer MEDICARE, OTHER, SELFPAY ==
[2024-08-30] VITALS (20 sets, daily range): BP systolic 109–192; BP diastolic 49–83; PULSE 45–64; RESP 16–20; TEMP 36.1–37.1; O2SAT 88–100; BMI 18.3
[2024-08-30] MEDS: ACETAMINOPHEN 500 MG TABLET 1000 MG PO ×3 (08:05→21:22)
[2024-08-30] MEDS: OXYCODONE (CR) 10 MG TAB.ER.12H PO (08:05)
[2024-08-30] MEDS: SODIUM CHLORIDE 0.9 % (FLUSH) 10 ML SYRINGE IVF (08:05)
[2024-08-30] MEDS: LACTATED RINGERS 1000 ML 1,000 ML 100 ML IV ×2 (08:05→10:54)
--- NOTE | 2024-08-30 08:21 | W.PM.H&PU ---
History & Physical Update History & Physical Update H&P Reviewed and patient assessed: No changes noted
[2024-08-30] MEDS: MIDAZOLAM HCL 1 MG/ML inj IVP (08:47)
--- NOTE | 2024-08-30 09:03 | SUR.PREOP ---
TIME?OUT:?0847 PT/RN/MDA?VERIFICATION?OF?SURGICAL?SITE,?PROCEDURE,?AND?CONSENT OBTAINED?PRIOR?TO?INVASIVE?PROCEDURE.
--- NOTE | 2024-08-30 09:08 | P.NB_ITS ---
Nerve Block Nerve Block Time Seen by Provider: 08:50 Date Seen: 08/30/24 Type of block requested by surgeon for post-operative analgesia: supraclavicular Side: right Time out performed: Yes Verification of patient name: Yes Verification of date of : Yes Site marking: site marked Name of person performing procedure: Charles Continuous monitoring Was continuous monitoring of O2 sat, B/P, cardiac/vascular sonographer, recorded every 15 minutes?: Yes Procedure Checklist: sterile prep, needles and gloves Ultrasound guided. Images saved: Yes Medications given in 5ml increments after negative aspiration: Ropivicaine %: 0.5 mL: 12 Needle gauge: 22 Precedex (mcg): 25 Patient tolerated procedure well: Yes Block Charges Block Charge (with Pro Fee): Brachial Plexus Use of Ultrasound Machine for Block: Yes- US Guidance/pain block
--- NOTE | 2024-08-30 09:08 | P.ANES_ITS ---
Anesthesia Charges Start Date/Time Anesthesia Start Date: 08/30/24 Anesthesia Start Time: 09:41 Stop Date/Time Anesthesia Stop Date: 08/30/24 Anesthesia Stop Time: 12:07 Summary Extremes of Age - Over 70 or under 1: MDA Coding CPT Codes CPT Codes: ANESTH SHOULDER REPLACEMENT - 64321 ([id number]) P4 - PT W/SEV SYS DIS THREAT LIFE, QK - PIPING SUPERVISOR 2-4 CNCRNT ANES PROC, QX - TURPENTINER SVC W/ MD MED DIRECTION Additional Codes: Summary - Extremes of Age - Over 70 or under 1: MDA ([id number])
--- NOTE | 2024-08-30 09:08 | W.ANESCHARGE ---
Anesthesia Charges Start Date/Time Anesthesia Start Date: 08/30/24 Anesthesia Start Time: 09:41 Stop Date/Time Anesthesia Stop Date: 08/30/24 Anesthesia Stop Time: 12:07 Summary Extremes of Age - Over 70 or under 1: MDA Coding CPT Codes CPT Codes: ANESTH SHOULDER REPLACEMENT - 53640 ([id number]) P4 - PT W/SEV SYS DIS THREAT LIFE, QK - AUDIT ASSOCIATE 2-4 CNCRNT ANES PROC, QX - PUMPER HAND SVC W/ MD MED DIRECTION Additional Codes: Summary - Extremes of Age - Over 70 or under 1: MDA ([id number])
[2024-08-30] MEDS: TRANEXAMIC ACID 100 MG/ML INJ 1000 MG IV (10:00)
--- NOTE | 2024-08-30 10:04 | CRLHL7_ITS ---
For Patients: As a result of the Cures Act, medical imaging exams and procedure reports are released immediately into your electronic medical record. You may view this report before your referring provider. If you have questions, please contact your health care provider. Indication: POST OP RIGHT SHOULDER Technique: Three views right shoulder Findings/Impression: Hardware from a right shoulder arthroplasty with a long humeral stem is in satisfactory position. Bone alignment is normal. No sign of acute fracture. Postop changes are within normal limits. Dictated by Bobo Tavarez MD @ 08/31/2024 8:23:24 AM (Electronically Signed)
--- NOTE | 2024-08-30 11:42 | P.ORPRC_ITS ---
Procedure Note Date of procedure: 08/30/24 Procedure: PREOPERATIVE DIAGNOSIS: 1. Right proximal humerus malunion, subacute 2. Right long head of the biceps tendinopathy and tenosynovitis POSTOPERATIVE DIAGNOSIS: 1. Right proximal humerus malunion, subacute 2. Right long head of the biceps tendinopathy and tenosynovitis PROCEDURE: 1. Right reverse shoulder arthroplasty. 2. Right long head of biceps open tenodesis SURGEON: Robby Pozo MD. COMBINATION BUILDING INSPECTOR: Irineo BAUTISTA - Of note, a skilled assistant center manager was critical for this case to aid in patient positioning, tissue retraction, limb manipulation/positioning, retraction for glenoid exposure, which was challenging, awareness and protection of critical structures, and closure. ANESTHESIA: General plus supraclavicular block EBL: 200 ml IMPLANTS: DJ0 surgical Altivate humeral stem size 6 small shell, 108 mm length with P2 porous coating vitamin E neutral poly small socket insert RSP glenoid base plate P2 porous coating with 3 perimeter locking screws 32 neutral glenosphere with retaining screw COMPLICATIONS: None evident INDICATIONS: The patient is a pleasant 79-year-old female who has experienced a right proximal humerus fracture 06/2024. This was treated non operatively initially. Unfortunately, it has gone on to a malunion which has limited her general motion and function. Physical exam was consistent with associated pain. Given the deformity, the dysfunction, and the pain, and failure of nonop erative management, recommendation was made for surgery. DESCRIPTION OF PROCEDURE: Following a thorough discussion of risks, benefits, and alternatives, consent was obtained and the left shoulder was marked. The patient was brought to the operating room and placed supine on the operating table. Induction of anesthesia was undertaken. 1 g IV Ancef and 1 g tranexamic acid was administered within 1 hr of incision preoperatively. Appropriate time-out was performed identifying proper patient, site, and procedure. The operative extremity was prepped and draped in the appropriate sterile fashion using ChloraPrep after the patient was positioned in the lazy beach chair position with head in neutral alignment and all bony prominences well padded. A longitudinal incision was made for deltopectoral approach. Deltoid was retracted laterally. Cephalic vein was identified and retracted laterally as well. Vein was spared/protected throughout the case. The clavipectoral fascia was identified and divided longitudinally staying lateral to the conjoined tendon / coracoid. The conjoined tendon was protected with a blunt Hohmann. The long head of the biceps tendon was identified and the bicipital sheath released. The upper 1/4 of the pectoralis major was also released from its insertion. The long head of the biceps was tenodesed to the pectoralis major tendon. The remaining proximal tendon tissue was excised. The rotator cuff was inspected and found to have good integrity with the subscapularis but fair integrity with a supraspinatus], and a decision for a reverse shoulder arthroplasty was confirmed. The long head of biceps, of note, was significant flattened, thickened, with abundant tenosynovitis. A subscapularis cuff of tissue was left via tenotomy for later repair with the remaining subscapularis released in a subperiosteal fashion with the Bovie. This was tagged for later repair. The 3 sisters were cauterized. The upper subscapularis was released from the capsule with a curved Huerta scissors towards the glenoid. The inferior subscapularis was divided from the capsular tissue on its caudal surface with particular caution for the axillary nerve. This was palpated anterior to the subscapularis both prior to and near the finish of the case. Inferior humeral head osteophytes were excised with caution taken throughout the case with regards to the axillary nerve. The humerus was dislocated, and humeral head cut completed. Then a protector plate was applied. We turned our attention to the glenoid. The humerus was retracted posteriorly. The subscap was protected anteriorly and the labrum/long head biceps origin was excised circumferentially. The capsule was released along the anterior and inferior portions of the glenoid cautiously with a Wood elevator being careful not to penetrate deep. The glenoid had appropriate exposure, and was prepared with the cannulated system with a target of approximately 5-10? of inferior tilt and neutral anteversion. Utilizing the match Point 3D printed guide, the guide pin was placed. The 3D printed jig removed and after placing the guide pin, the tap was placed followed by the glenoid reaming. The real base plate was opened, and inserted, and excellent compression/purchase was achieved with the central screw. Peripheral screws were then drilled, measured, and placed. The glenosphere was then placed consistent with the preoperative plan utilizing the above noted glenosphere. After securing the glenosphere with the locking, torque limited screw, attention was turned back to the humerus. A canal finder was placed followed by various reamers by hand. The real humeral stem was then opened and inserted with excellent metaphyseal fit and stability. Trial poly was placed and the shoulder reduced. Excellent reduction and stability achieved with appropriate tension on the conjoined tendon. At this stage, trial implants were removed, and the real implants inserted and the shoulder reduced. A 3 minute Betadine soak was performed followed by a thorough irrigation with normal saline. Subscapularis was repaired with #1 PDS to the cuff of tissue on the lesser tuberosity. Excellent reapproximation of tissue achieved. Hemostasis was found to be appropriate. The deltopectoral interval was reapproximated with 0 Vicryl, subcutaneous and subcuticular closure was then performed with number 2-0 Vicryl and 4-0 Monocryl, respectively. A skilled assistant center manager was critical for this case to aid in patient positioning, tissue retraction, limb manipulation/positioning, retraction for glenoid exposure, which was challenging, awareness and protection of critical structures, and closure. PLAN: 1. Sling at all times for the operative upper extremity. 2. AROM of elbow, forearm, wrist, and digits as tolerated. 3. PT/OT consults for education and assistance. 4. Social consult for discharge planning. 5. 23 hr perioperative antibiotics. 6. Early ambulation, and SCDs for DVT prophylaxis. 7. Admit to the hospital for the above 8. Analgesics p.r.n.
--- NOTE | 2024-08-30 12:14 | P.ANES_ITS ---
Anesthesia Charges Start Date/Time Anesthesia Start Date: 08/30/24 Anesthesia Start Time: 09:41 Stop Date/Time Anesthesia Stop Date: 08/30/24 Anesthesia Stop Time: 12:07 Summary Extremes of Age - Over 70 or under 1: DENTAL TECHNICIAN INSTRUCTOR Coding CPT Codes CPT Codes: ANESTH SHOULDER REPLACEMENT - 11354 ([id number]) P4 - PT W/SEV SYS DIS THREAT LIFE, QX - DENTAL TECHNICIAN INSTRUCTOR SVC W/ MD MED DIRECTION, QK - SMALL BUSINESS REPRESENTATIVE 2-4 CNCRNT ANES PROC Additional Codes: Summary - Extremes of Age - Over 70 or under 1: DENTAL TECHNICIAN INSTRUCTOR ([id number])
--- NOTE | 2024-08-30 12:14 | W.ANESCHARGE ---
Anesthesia Charges Start Date/Time Anesthesia Start Date: 08/30/24 Anesthesia Start Time: 09:41 Stop Date/Time Anesthesia Stop Date: 08/30/24 Anesthesia Stop Time: 12:07 Summary Extremes of Age - Over 70 or under 1: NIGHT SUPERVISOR Coding CPT Codes CPT Codes: ANESTH SHOULDER REPLACEMENT - 86800 ([id number]) P4 - PT W/SEV SYS DIS THREAT LIFE, QX - NIGHT SUPERVISOR SVC W/ MD MED DIRECTION, QK - SOLDERING MACHINE OPERATOR AUTOMATIC 2-4 CNCRNT ANES PROC Additional Codes: Summary - Extremes of Age - Over 70 or under 1: NIGHT SUPERVISOR ([id number])
--- NOTE | 2024-08-30 12:47 | SUR.PHASEI ---
xray in with other patients, will complete shoulder imaging in [facility].
--- NOTE | 2024-08-30 14:56 | PM.IMCN1 ---
Date of Consult Patient: [facility] Patient Consult date: 08/30/24 Requesting Physician: Orthopedics Primary Care Provider: Neymar Rivas MD Consult Narrative Narrative: Michelle Al is a 79 year old female admitted for right total shoulder arthroplasty. Procedures performed by Dr. Pozo. He request consultation for management of medical problems following surgery. There were no operative complications. Postop she reports generally doing well. She has an effective block in her right upper extremity. No dyspnea. She reports no recent illness or injury. Postop vitals are unremarkable except she has bradycardia with pulses in the low to mid 40s. This is asymptomatic for her. She is not aware of a history of bradycardia. She does take diltiazem 360 mg daily. This will be held pending recovery of her pulse. Review of Systems Narrative: No recent illness or injury. [facility] Medical History (Updated 08/30/24 @ 15:11 by Alberto Nichols MD) LVH (left ventricular hypertrophy) ?I51.7 - Cardiomegaly (ICD-10) Cigarette smoker ?F17.210 - Nicotine dependence, cigarettes, uncomplicated (ICD-10) Tobacco use ?Z72.0 - Tobacco use (ICD-10) COPD (chronic obstructive pulmonary disease) ?J44.9 - Chronic obstructive pulmonary disease, unspecified (ICD-10) Hypertension ?I10 - Essential (primary) hypertension (ICD-10) Rheumatoid arthritis ?M06.9 - Rheumatoid arthritis, unspecified (ICD-10) Peripheral neuropathy ?G62.9 - Polyneuropathy, unspecified (ICD-10) Valvular heart disease ?I38 - Endocarditis, valve unspecified (ICD-10) Hyperlipidemia ?E78.5 - Hyperlipidemia, unspecified (ICD-10) (HFpEF) heart failure with preserved ejection fraction ?I50.30 - Unspecified diastolic (congestive) heart failure (ICD-10) Anxiety and depression ?F41.9 - Anxiety disorder, unspecified (ICD-10) ?F32.A - Depression, unspecified (ICD-10) Chronic diarrhea ?K52.9 - Noninfective gastroenteritis and colitis, unspecified (ICD-10) Essential tremor ?G25.0 - Essential tremor (ICD-10) GERD (gastroesophageal reflux disease) ?K21.9 - Gastro-esophageal reflux disease without esophagitis (ICD-10) Left anterior fascicular hemiblock ?I44.4 - Left anterior fascicular block (ICD-10) Bilateral leg edema ?R60.0 - Localized edema (ICD-10) Sensory ataxia ?R27.8 - Other lack of coordination (ICD-10) Chronic neck and back pain ?M54.2 - Cervicalgia (ICD-10) ?M54.9 - Dorsalgia, unspecified (ICD-10) ?G89.29 - Other chronic pain (ICD-10) Other specified disorders of the skin and subcutaneous tissue ?L98.8 - Other specified disorders of the skin and subcutaneous tissue (ICD-10) History of lung cancer (2013) ?Z85.118 - Personal history of other malignant neoplasm of bronchus and lung (ICD-10) Surgical History (Updated 08/30/24 @ 15:03 by Alberto Nichols MD) Status post reverse arthroplasty of right shoulder ?Z96.611 - Presence of right artificial shoulder joint (ICD-10) History of reverse total replacement of right shoulder joint (08/30/24) ?Z96.611 - Presence of right artificial shoulder joint (ICD-10) H/O cervical spinal arthrodesis (~2021) ?Z98.1 - Arthrodesis status (ICD-10) History of cataract surgery ?Z98.49 - Cataract extraction status, unspecified eye (ICD-10) History of lobectomy of lung (2013) ?Z90.2 - Acquired absence of lung [part of] (ICD-10) History of back surgery (07/2020) ?Z98.890 - Other specified postprocedural states (ICD-10) History of hysterectomy ?Z90.710 - Acquired absence of both cervix and uterus (ICD-10) History of cholecystectomy (06/02/14) ?Z90.49 - Acquired absence of other specified parts of digestive tract (ICD-10) History of appendectomy ?Z90.49 - Acquired absence of other specified parts of digestive tract (ICD-10) Family History Mother COPD (chronic obstructive pulmonary disease) High blood pressure Breast cancer Rheumatoid arthritis Father Bone cancer Maternal Grandmother Breast cancer Social History (Updated 08/30/24 @ 15:07 by Alberto Nichols MD) Narrative: She moved from [place] to [place]. She lives independently in her own home. There are no steps to get around her house. She walks with a cane for balance. She has a son Joshua and a daughter in-law Amy who will provide support postoperatively for her. Son Joshua is healthcare power of trademark attorney. She indicates that she does not want prolonged life support. She tells me very specifically that she does not want life support beyond 2 days. She quit smoking a couple months ago. She drinks alcohol about twice a month What is your current living situation?: I presently have a place to live Problems where you live: no known problems Problems where you live details: n/a In the past 12 months, utilities in danger of being shut off: no In past 12 months, lack of transportation kept you from medical appts, meetings, work, or getting things needed for daily living: no In the past 12 mos, have been you worried that your food would run out before you had money to buy more?: never true In the past 12 mos, the food you bought just didn't last and you didn't have money to buy more?: never true Smoking Status: Never smoker Do you use any of these nicotine containing products: None How often do you have a drink containing alcohol: 2-4 times a month How many standard drinks containing alcohol do you have on a typical day: 1 or 2 How often do you have six or more drinks on one occasion: Never AUDIT-C Alcohol total score: 2 Non-prescribed substance use: denies use Caffeine: Yes (3c/day) Are you now , , , , never or living with a partner: Social isolation score (0-1 are the most socially isolated patients): 0 How often does anyone, including family, friends and others, physically hurt you: never How often does anyone, including family, friends and others, insult or talk down to you: never How often does anyone, including family, friends and others, threaten you with harm: never How often does anyone, including family, friends and others, scream or curse at you: never Meds Home Medications and Allergies Home Medications ?Medication ?Instructions ?Recorded ?Confirmed ?Type albuterol sulfate 90 mcg/actuation 2 puff inhalation Q6H PRN 04/14/24 08/30/24 History aerosol inhaler aspirin 81 mg chewable tablet 81 mg PO QDAY 04/14/24 08/30/24 History azelastine 137 mcg-fluticasone 50 1 spray intranasal BID 04/14/24 08/30/24 History mcg/spray nasal spray cholecalciferol (vitamin D3) 25 25 mcg PO QDAY 04/14/24 08/30/24 History mcg (1,000 unit) capsule conjugated estrogens 1.25 mg tablet 1.25 mg PO MOWEFR 04/14/24 08/30/24 History ipratropium 0.5 mg-albuterol 3 mg 3 ml inhalation Q6H PRN 04/14/24 08/30/24 History (2.5 mg base)/3 mL nebulization soln multivitamin 1 tab PO QAM 04/14/24 08/30/24 History pregabalin 75 mg capsule 75 mg PO TID 04/14/24 08/30/24 History golimumab 12.5 mg/mL intravenous 100 mg IV Q8W 04/15/24 08/30/24 History solution (Simponi ARIA) gabapentin 100 mg capsule 100 mg PO TID #90 caps 06/02/24 08/30/24 Rx valsartan 80 1 tab PO QDAY #90 tabs 06/02/24 08/30/24 Rx mg-hydrochlorothiazide 12.5 mg tablet (Diovan HCT) diltiazem HCl 360 mg capsule,24 360 mg PO DAILY 08/30/24 08/30/24 History hr,extended release fluticasone fur. 100 mcg-umeclid 1 inh inhalation DAILY 08/30/24 08/30/24 History 62.5 mcg-vilant 25 mcg inhalat.powder (Trelegy Ellipta) trazodone 100 mg tablet 200 mg PO HS 08/30/24 08/30/24 History Home Medication Comments: She stop taking aspirin and Simponi and multivitamin and vitamin-D. Allergies Allergy/AdvReac Type Severity Reaction Status Date / Time Sulfa (Sulfonamide Allergy Intermediate Hives Verified 08/30/24 07:50 Antibiotics) hydroxychloroquine Allergy Unknown Angioedema Verified 08/30/24 07:50 Exam Narrative: Exam Narrative: She is alert and appears in no distress. She gives her own history. Eyes normal. Oropharynx normal with dry mucous membranes. Neck is supple without mass or adenopathy. Respirations are clear to auscultation. No wheezing or rales or rhonchi. Fairly good air exchange all lung ware. Cardiovascular: S1, S2 1/6 systolic murmur no gallop or rub. Abdomen: Bowel sounds active. Abdomen is soft without tenderness or mass. Right upper extremity with minimal motion in the hand and minimal sensation in the hand and arm secondary to her nerve block. Hand is warm to touch with good radial pulse. Left upper extremity and both lower extremities are normal no significant edema. Intact pulses. Const: Vital Signs, click to edit/add: Vital Signs - 24 hr 08/30/24 08:23 08/30/24 08:48 08/30/24 09:00 Temperature 98.4 F Pulse Rate 64 62 56 L Respiratory Rate 16 16 16 Blood Pressure 185/77 H 192/83 H 168/67 H Pulse Oximetry 93 97 100 Oxygen Delivery Me thod Room Air Nasal Cannula Nasal Cannula Oxygen Flow Rate 2 2 08/30/24 12:07 08/30/24 12:15 08/30/24 12:20 Temperature 97.2 F L Pulse Rate 58 L 53 L 52 L Respiratory Rate 20 20 20 Blood Pressure 157/56 H 144/57 H 124/56 L Pulse Oximetry 93 96 96 Oxygen Delivery Me thod Nasal Cannula Nasal Cannula Nasal Cannula Oxygen Flow Rate 2 2 2 08/30/24 12:25 08/30/24 12:30 08/30/24 12:35 Temperature Pulse Rate 51 L 52 L 55 L Respiratory Rate 20 20 20 Blood Pressure 141/58 H 122/73 125/58 L Pulse Oximetry 95 94 96 Oxygen Delivery Me thod Nasal Cannula Nasal Cannula Nasal Cannula Oxygen Flow Rate 2 2 2 Documenting provider has reviewed patient's vital signs: yes Assessment and Plan Assessment and plan (1) Status post reverse arthroplasty of right shoulder: Problem comment: 08/30/2024 Dr. Pozo. No complications Status: Acute (2) Postoperative bradycardia: Problem comment: Postoperative pulses in the the low to mid 40s. Appears to be regular, sinus rhythm. Patient takes diltiazem 360 mg daily. This can be held or reduced in dose depending on how she is doing tomorrow Status: Acute (3) Rheumatoid arthritis: Problem comment: Not currently receiving treatment. Apparently has not established herself locally with a ammonia refrigeration technician Status: Chronic (4) COPD (chronic obstructive pulmonary disease): Problem comment: Severe on 11/20/23 [employer] PFT. Currently appears to be fairly well compensated. Has stop smoking. Status: Chronic (5) Hypertension: Problem comment: Continue to monitor. Status: Chronic Plan 79-year-old female admitted for right shoulder arthroplasty. Doing fairly well postoperatively except for her bradycardia. Monitor vital signs. Monitor for symptoms. Hold diltiazem pending her blood pressure and pulse overnight. Probable discharge to home with family tomorrow. Total Time Spent Total Time Spent: Total time spent is 40 minutes in reviewing records, coordination of care, discussing with patient and other providers management of postoperative care and bradycardia
[2024-08-30] MEDS: CEFAZOLIN 1 GM in 0.9 % SODIUM CHLORIDE Mini-bag 100 ML IVPB (16:16)
--- NOTE | 2024-08-30 19:08 | PC.NURSE ---
Pt arrived to the unit @ 1300. Accompanied by son. LR @ 75. Pt AxOx4, pleasant, and cooperative with cares. Pt needing 0.5-1.5 L of 02 NC. Sats remained around 88-94%. Hx of COPD. Pt has been bradycardic since arriving, MD Sneed and Marleen notified with no further interventions necessary. SBA to bedside commode. Continent of the bladder. Pt tolerating reg diet/fluids well. Ice pack to the op site in place, dressing remains CDI. SCDs in place. Pt appears resting with call light in reach.
[2024-08-30] MEDS: GABAPENTIN 100 MG CAPSULE PO (21:09)
[2024-08-30] MEDS: TRAZODONE HCL 50 MG TABLET 200 MG PO (21:10)
[2024-08-30] MEDS: SENNOSIDES 1 TAB TABLET 2 TAB PO (21:10)
[2024-08-30] MEDS: PREGABALIN 75 MG CAPSULE PO (21:17)
[2024-08-31] MEDS: CEFAZOLIN 1 GM in 0.9 % SODIUM CHLORIDE Mini-bag 100 ML IVPB ×2 (00:15→08:29)
[2024-08-31] MEDS: ACETAMINOPHEN 500 MG TABLET 1000 MG PO ×2 (04:25→10:06)
--- NOTE | 2024-08-31 07:43 | PC.NURSE ---
Arrived to find the patient alert and oriented and vitally stable while on 0.5 L. Weak of strength. Appears frail of body. Skin is thin and fragile. Right shoulder incision is covered with a dry and intact dressing. No swelling, redness, or pain noted. Right arm is in a sling. Circulation has remained intact. The patient had sensation in her hand on first assessment. Later lost all sensation. MD notified in person. Verbal order to raise arm to reduce risk of swelling. Regained feeling and minor strength around 0015 which fully restored itself by the morning. The patient also experienced an episode of diaphoresis per her report. No other symptoms at that time. I did not note extreme sweating when notified but the patient described it as uncomfortable and similar to other episodes of hot flashes. This soon resolved. Oxygen need has been met at 0.5 L of oxygen through her nasal canula keeping oxygen in the upper 80s to lower 90s.?An range examiner has been applied to her canula to allow for oxygenation while toileting. Requires it for activity. The patient notably did not sleep at all overnight. I had a discussion with the patient about the need for sleep for maintenance?of her health but the patient was not receptive. While she remained completely alert overnight her mentation did decline in acuteness and it became clear she was suffering from sleep deprivation. She also notes that she uses 2-3 liters of oxygen when at home and that she has been experiencing great tiredness and sleepiness during the day in addition to her insomnia. On coming staff notified for follow up. ?
[2024-08-31 08:16] VITALS: BP 163/70; PULSE 68; RESP 18; TEMP 36.7; O2SAT 91
--- NOTE | 2024-08-31 08:22 | PC.SOCIAL ---
Discharge planning: SW met with patient to determine if there are any resources or supports she needs at discharge. Patient shared that the only thing she can think of is that she lost her oxygen in her move from [place] to [place] last year. Patient reports that all she has an inhaler and trilogy machine at home but no portable oxygen. SW informed that she would update the respiratory therapist and they will meet with patient. Patient otherwise states that she has her son and [id number] for support and has everything else taken care of. SW to assist if needs arise.
[2024-08-31] MEDS: VALSARTAN 80 MG TABLET PO (08:34)
[2024-08-31] MEDS: GABAPENTIN 100 MG CAPSULE PO (08:35)
[2024-08-31] MEDS: SENNOSIDES 1 TAB TABLET 2 TAB PO (08:35)
[2024-08-31] MEDS: PREGABALIN 75 MG CAPSULE PO (08:35)
--- NOTE | 2024-08-31 11:32 | P.ORPN_ITS ---
Subjective Subjective Date Seen: 08/31/24 Principal diagnosis: POD1 rt reverse total shoulder arthroplasty and long head biceps tenodesis Interval history: Patient reports doing well. No acute events over night. States that she continues to use the incentive spirometer. Notes that she is getting movement back in her fingers, hand and wrist this morning. Reports that her thumb is sluggish but this is chronic due to the arthritis. Pain managed with scheduled and PRN medications, ice. DVT prophylaxis:, SCDs, walking. Denies fevers, chills, aches, N/V, CP, SOB/GHOTRA, or lightheadedness. She plans to go home today with her son. Ortho Exam Narrative Exam Narrative: -Patient appears comfortable in recliner; no apparent acute distress. Eating breakfast. -Alert and oriented times 3 -Operative shoulder swollen; soft, supple tissues; no obvious erythema. Ecchymosis minimal. Warmth appropriate -Surgical dressing clean, dry, intact; no obvious drainage, no erythematous streaking peripheral to the bandage -Bilateral calves soft and supple; no significant swelling, edema, tenderness, erythema, discoloration, warmth, or palpable cords -2+ radial pulse, intact dermatomes and myotomes distally (5/5 strength) Const Vital Signs, click to edit/add: Vital Signs - 24 hr 08/30/24 12:07 08/30/24 12:15 08/30/24 12:20 Temperature 97.2 F L Pulse Rate 58 L 53 L 52 L Pulse Rate [Pulse Oximeter] Respiratory Rate 20 20 20 Blood Pressure 157/56 H 144/57 H 124/56 L Blood Pressure [Left Arm] Pulse Oximetry 93 96 96 Oxygen Delivery Method Nasal Cannula Nasal Cannula Nasal Cannula Oxygen Flow Rate 2 2 2 08/30/24 12:25 08/30/24 12:30 08/30/24 12:35 Temperature Pulse Rate 51 L 52 L 55 L Pulse Rate [Pulse Oximeter] Respiratory Rate 20 20 20 Blood Pressure 141/58 H 122/73 125/58 L Blood Pressure [Left Arm] Pulse Oximetry 95 94 96 Oxygen Delivery Method Nasal Cannula Nasal Cannula Nasal Cannula Oxygen Flow Rate 2 2 2 08/30/24 13:00 08/30/24 13:15 08/30/24 13:30 Temperature 97.7 F 97 F L 97.7 F Pulse Rate 48 L 53 L 46 L Pulse Rate [Pulse Oximeter] Respiratory Rate 16 18 18 Blood Pressure 129/54 L 126/57 L 133/81 Blood Pressure [Left Arm] Pulse Oximetry 90 90 88 Oxygen Delivery Method Nasal Cannula Nasal Cannula Nasal Cannula Oxygen Flow Rate 1 1 1 08/30/24 13:45 08/30/24 14:00 08/30/24 14:30 Temperature 97.6 F 97.6 F 97.8 F Pulse Rate 46 L 46 L 46 L Pulse Rate [Pulse Oximeter] Respiratory Rate 16 16 18 Blood Pressure 113/49 L 119/50 L 117/53 L Blood Pressure [Left Arm] Pulse Oximetry 88 89 94 Oxygen Delivery Method Nasal Cannula Nasal Cannula Nasal Cannula Oxygen Flow Rate 1.5 1.5 1.5 08/30/24 15:00 08/30/24 15:00 08/30/24 16:00 Temperature 97.8 F 98.8 F Pulse Rate 45 L 47 L Pulse Rate [Pulse Oximeter] Respiratory Rate 18 18 18 Blood Pressure 120/56 L 118/61 Blood Pressure [Left Arm] Pulse Oximetry 93 94 91 Oxygen Delivery Method Nasal Cannula Nasal Cannula Nasal Cannula Oxygen Flow Rate 1 1.5 1.5 08/30/24 17:00 08/30/24 18:00 08/30/24 22:38 Temperature 98.3 F 98.1 F Pulse Rate 49 L 50 L Pulse Rate [Pulse Oximeter] Respiratory Rate 18 16 16 Blood Pressure 109/53 L 117/53 L Blood Pressure [Left Arm] Pulse Oximetry 93 93 94 Oxygen Delivery Method Nasal Cannula Nasal Cannula Nasal Cannula Oxygen Flow Rate 1 0.5 0.5 08/31/24 08:16 08/31/24 08:16 08/31/24 08:16 Temperature 98.1 F Pulse Rate Pulse Rate [Pulse Oximeter] 68 68 Respiratory Rate 18 18 18 Blood Pressure Blood Pressure [Left Arm] 163/70 H Pulse Oximetry 91 91 Oxygen Delivery Method Nasal Cannula Nasal Cannula Oxygen Flow Rate 1 1 Assessment and Plan Assessment and plan (1) Status post reverse arthroplasty of right shoulder: Problem details: 08/30/2024 Dr. Pozo. No complications Status: Acute (2) Postoperative bradycardia: Problem details: Postoperative pulses in the the low to mid 40s. Appears to be regular, sinus rhythm. Patient takes diltiazem 360 mg daily. This can be held or reduced in dose depending on how she is doing tomorrow Status: Acute (3) Rheumatoid arthritis: Problem details: Not currently receiving treatment. 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 Currently appears to be fairly well compensated. Has stop smoking. Status: Chronic (5) Hypertension: Problem details: Continue to monitor. Status: Chronic Plan - Complete 23 hour perioperative antibiotics. - PT/OT consult for education and assistance. - Social work consult for discharge planning - Prescribed analgesics as needed - DVT prophylaxis: Walking, and SCDs - Anticipation is for discharge to home with family/friends today 08/31/2024 if the patient remains medically stable, pain is controlled, and they are safe with mobilization.
--- NOTE | 2024-08-31 12:13 | PC.NURSE ---
Discharge: Patient pleasant and cooperative, alert and oriented. Patient vitally stable, lungs clear, BS WNL, IV removed, catheter intact. Patient rates right shoulder pain at most 6/10, scheduled tylenol given and 5mg of oxy once. Right shoulder dressing C/D/I, active ice used on site. Patient tolerating regular diet, urinating well, and no BM. Patient is SBA with cane. Patient was on 1 L NC with oxygen sats in the low 90s. Patient signed belongings sheet and discharge form, all question regarding discharge information was answered. Patient left the floor to home by wheelchair with son and belongings at 1115.
== END 2024-08-31 11:15 | disposition home or self-care (01) | DRG 483 ==
PROVIDERS: Admitting Provider Orthopaedic Surgery Sports Medicine; PCP Internal Medicine; Visit Provider Orthopaedic Surgery Sports Medicine
PROC: 0RRJ0JZ Replacement of Right Shoulder Joint with Synthetic Substitute, Open Approach (ICD-10-PCS; CPT 23472; principal; 2024-08-30 09:15)
DX: S42.201A Unspecified fracture of upper end of right humerus, initial encounter for closed fracture (principal); I97.191 Other postprocedural cardiac functional disturbances following other surgery; I50.30 Unspecified diastolic (congestive) heart failure; M75.21 Bicipital tendinitis, right shoulder; I11.0 Hypertensive heart disease with heart failure; G89.18 Other acute postprocedural pain; R00.1 Bradycardia, unspecified; J44.9 Chronic obstructive pulmonary disease, unspecified; F17.210 Nicotine dependence, cigarettes, uncomplicated; M06.9 Rheumatoid arthritis, unspecified; F41.9 Anxiety disorder, unspecified; F32.A Depression, unspecified; G62.9 Polyneuropathy, unspecified; E78.5 Hyperlipidemia, unspecified; Z85.118 Personal history of other malignant neoplasm of bronchus and lung
CPT/HCPCS: 01638; 64415; 73030; 76942; 94761; 97110; 97165; 97530; 97535; 99100; A9270; C1713; C1776; J0330; J0690; J1100; J2250; J2371; J2405; J2704; J2795; J3010; J3490; J7120; L3670

== ENCOUNTER 2024-09-28 11:18 | Outpatient (CLI) | payer MEDICARE, OTHER, SELFPAY | END 2024-09-28 11:19 | disposition home or self-care (01) | LOC: NFLDREF 11:20 | PROVIDERS: PCP Internal Medicine; Visit Provider Internal Medicine | DX: R53.1 Weakness (principal); R82.90 Unspecified abnormal findings in urine | CPT/HCPCS: 80053; 87086 ==

== ENCOUNTER 2024-12-08 13:00 | Outpatient (RCR) | payer MEDICARE, OTHER, SELFPAY ==
--- NOTE | 2024-09-20 12:47 | PT.OPEX ---
PT [place] Outpatient Eval PT [facility] Outpatient Eval Start: 09/20/24 08:47 Freq: Status: Active Protocol: Document 09/20/24 08:49 CURLY (Rec: 09/20/24 12:05 CURLY [email or web address]) E-signed By Lesly Atkins, PT Physical Therapy Outpatient Evaluation Insurance Information Recert Due Date 12/15/24 Insurance Name Medicare B,Other; See Comments Insurance TFL Information/Comments Medical Diagnosis S/P R RTSA DOS 08/30/24 Treating Diagnosis Right shoulder pain, limited shoulder ROM, weakness Referring Yimi Garcia Subjective Preferred Name Juli Martinez (Juli) s/p 3 weeks R RTSA DOS: 08/30/24. She initially injured her shoulder 06/2024. She was planting [place] in her garden when she was attacked by a wasp, lost her balance and fell. Sustained a R prox humerus fx. 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 She has been compliant with sling use during the day (not wearing at night). She admits to trying to test the shoulder with lifting it into abduction. She has occasionally been icing. She is rarely taking oxycodone anymore (took one this morning however d/t pain and anticipation of therapy). Also takes Tylenol prn. She lives alone however son and daughter in law in town who currently help her drive to get groceries and to appointments. Otherwise she states she has been mod I with all other ADLs. She was previously driving before surgery and occasionally using a SEC if she felt she needed it. She does not present with AD this session as she states she felt stable today. PMH: LVH, COPD, former smoker, HTN, peripheral neuropathy, Heart failure, essential tremor, Lung CA, Cervical arthrodesis, lumbar fusion L3-4 Pain Comments 08/26 today Date of Last 09/07/24 Physician Visit Date of Next 10/12/24 Physician Visit Date of Surgery (If 08/30/24 applicable) Current Work Status Retired Precautions Treatment Per Yimi Shields: PT starting now for PROM. AAROM at 5 Precautions/ weeks postop. 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 DOS: 08/30/24. Anticipated deficits/impairments in pain, ROM, and strength. Incision healing very well and no s/s of infection. Session focused on thorough review of precautions/restrictions with emphasis on no AROM at this time until 5 weeks may begin AAROM. Advised continued sling use and SEC use for safety for fall prevention. Pt would benefit from skilled PT interventions to facilitate return to PLOF and independence with ADLs and driving. Plan of Care Rehabilitation Good Potential Physical Therapy In 8 sessions: Goals Pt will demonstrate at least 120 deg FF in order to perform reaching tasks such as second shelf of cupboard and dressing/bathing Pt will return to driving and independence with grocery shopping In 16 sessions: Patient will be independent in self-management of shoulder and shoulder related symptoms Pt will exhibit 15-20 point improvement in QuickDASH Outcome measure to demonstrate functional improvement and progress towards goals. 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 and sweeping Treatment Plan/ Ice/Cold/Vasopneumatic,Joint Mobilization,Manual Direct Interventions Therapy,Neuromuscular Re-ed,Self-Care/Home Management, Therapeutic Activities,Therapeutic Exercises Frequency/Duration 1-2x/wk for 16 weeks Patient Will Be Completion of LTG(s),Independent w/HEP,Independently Discharged From Progressing Therapy Evaluation Billing Untimed Code 20 Treatment Minutes Complexity Moderate Certification Information Initial 09/20/24 Certification Date Ending Certification 12/15/24 Date Provider Signature Yes Required Provider Signature POC & Medical Necessity Shows Agreement With Physician NPI Number Write NPI# Here Physician Comment/ : Change Physician Signature Please Sign/Date Here & Date Requested
== END 2024-12-08 15:07 | disposition home or self-care (01) ==
PROVIDERS: PCP Internal Medicine; Visit Provider Physician Assistant Surgical
DX: Z47.1 Aftercare following joint replacement surgery (principal); Z96.611 Presence of right artificial shoulder joint; Z51.89 Encounter for other specified aftercare
CPT/HCPCS: 97110; 97140; 97162; 97535